=== PATIENT | male | born 1960 | race African-American/Black ===

== ENCOUNTER 2019-02-15 00:05 | Inpatient (IN) | payer MEDICARE, OTHER ==
[~2019-02-15] VITALS: Ht 182.9 cm; Wt 61.7 kg
[~2019-02-15 00:05] MED LIST: ATEN50TA; HYDR25TA
[2019-02-15] MEDS ORDERED: SODIUM CHLORIDE 0.9% 1,000 ML IV ONE (00:19)
[2019-02-15] MEDS ORDERED: ONDANSETRON HCL 4MG/2ML INJ IV STA (00:19)
[2019-02-15 00:44] LABS: BASOPHILS % 0.8 % (0.0-2.0); EOSINOPHILS % 0.7 % (0.0-5.0); HEMATOCRIT. 40.3 % (42.0-52.0); MEAN CORPUSCULAR HEMOGLOBIN 28.5 pg (28.0-32.0); MEAN CORPUSCULAR VOLUME 87.9 fL (80.0-94.0); MEAN PLATELET VOLUME 7.5 fl (7.4-10.4); MONOCYTES % 7.4 % (2.0-8.0); NEUTROPHILS % 39.1 % (40.0-76.0); PLATELET 238 x1000/uL (130-400); RED BLOOD CELL COUNT 4.58 mill/uL (4.7-6.1); RED CELL DISTRIBUTION WIDTH 13.3 % (11.6-14.6)
[2019-02-15 00:48] LABS: CHLORIDE 104 mEq/L (98-107)
[2019-02-15 00:53] LABS: ETHANOL BLOOD 219 mg/dL
[2019-02-15 02:43] LABS: CLARITY URINE CLEAR (CLEAR); COLOR URINE YELLOW (YELLOW); KETONES URINE NEGATIVE (NEGATIVE); LEUKOCYTE ESTERASE URINE NEGATIVE (NEGATIVE); NITRITE URINE NEGATIVE (NEGATIVE); OCCULT BLOOD URINE NEGATIVE (NEGATIVE); PROTEIN URINE NEGATIVE (NEGATIVE); SPECIFIC GRAVITY URINE 1.007 (1.005-1.030); UROBILINOGEN URINE 0.2 E.U./dL (0.2-1.0)
[2019-02-15 02:52] LABS: *AMPHETAMINES SCREEN URINE NEGATIVE (NEGATIVE); *BARBITURATES SCREEN URINE NEGATIVE (NEGATIVE); *BENZODIAZEPINES SCREEN URINE NEGATIVE (NEGATIVE); *COCAINE SCREEN URINE NEGATIVE (NEGATIVE); METHADONE URINE SCREEN NEGATIVE (NEGATIVE); OPIATES URINE SCREEN NEGATIVE (NEGATIVE)
[2019-02-15 02:53] LABS: CANNABINOID URINE SCREEN NEGATIVE (NEGATIVE); PHENCYCLIDINE URINE SCREEN NEGATIVE (NEGATIVE)
[2019-02-15 08:30] VITALS: BP 112/68
[2019-02-15] MEDS ORDERED: METF-414 PO (08:58)
[2019-02-15 09:00] VITALS: BP 112/68
[2019-02-15] MEDS ORDERED: ASPI-1158 PO (10:59)
[2019-02-15] MEDS ORDERED: LISI1TAB9 PO (10:59)
[2019-02-15] MEDS ORDERED: BACL20TA PO (10:59)
[2019-02-15] MEDS ORDERED: CLONIDINE 0.1MG TABLET PO PRN (11:45)
[2019-02-15] MEDS ORDERED: ACETAMINOPHEN 325MG TABLET PO PRN (11:45)
[2019-02-15] MEDS ORDERED: MVI, ADULT NO.1 10 ML, FOLIC ACID 1 MG, THIAMINE HCL 100 MG in SODIUM CHLORIDE 0.9% 1,0... IV SCH ×4 (11:45)
[2019-02-15] MEDS ORDERED: IPRATROPIUM/ALBUTEROL 0.5-3(2.5)MG/3ML NEB INH PRN (11:45)
[2019-02-15] MEDS ORDERED: HYDROCODONE/ACETAMINOPHEN 5/325MG TABLET PO PRN (11:45)
[2019-02-15] MEDS ORDERED: ONDANSETRON HCL 4MG/2ML INJ IV PRN (11:45)
[2019-02-15 12:00] VITALS: BP 131/83
[2019-02-15 16:00] VITALS: BP 147/96
[2019-02-15 20:00] VITALS: BP 128/85
[2019-02-16] VITALS: BP 127/83
[2019-02-16 04:00] VITALS: BP 152/98
[2019-02-16 05:48] LABS: BASOPHILS % 0.3 % (0.0-2.0); EOSINOPHILS % 1.1 % (0.0-5.0); HEMATOCRIT. 36.7 % (42.0-52.0); HEMOGLOBIN. 12.1 g/dL (14.0-18.0); LYMPHOCYTES % 49.6 % (20.0-50.0); MEAN CORPUSCULAR HEMOGLOBIN 28.8 pg (28.0-32.0); MEAN CORPUSCULAR VOLUME 87.6 fL (80.0-94.0); MONOCYTES % 8.4 % (2.0-8.0); NEUTROPHILS % 40.6 % (40.0-76.0); PLATELET 221 x1000/uL (130-400); RED BLOOD CELL COUNT 4.19 mill/uL (4.7-6.1); RED CELL DISTRIBUTION WIDTH 13.3 % (11.6-14.6)
[2019-02-16 06:23] LABS: CHLORIDE 109 mEq/L (98-107)
[2019-02-16 06:32] LABS: LDL CHOLESTEROL 86 mg/dL (5-100)
[2019-02-16 06:34] LABS: HDL CHOLESTEROL 44 mg/dL (40-59); T4 FREE 0.97 ng/dL (0.76-1.46)
[2019-02-16 08:00] VITALS: BP 138/101
[2019-02-16 12:00] VITALS: BP 101/70
[2019-02-16 14:27] VITALS: BP 101/70
== END 2019-02-16 15:07 | disposition home or self-care (01) | DRG 896 ==
LOC: ER 00:05 → 7WST 04:48 → ENRESERV 07:08
PROVIDERS: ADMIT Internal Medicine; ATTEND Internal Medicine
DX: F10.129 Alcohol abuse with intoxication, unspecified (principal); G92 Toxic encephalopathy; I10 Essential (primary) hypertension; E11.9 Type 2 diabetes mellitus without complications; Y90.7 Blood alcohol level of 200-239 mg/100 ml; W18.39XA Other fall on same level, initial encounter; Y92.098 Other place in other non-institutional residence as the place of occurrence of the external cause; Y93.89 Activity, other specified; Y99.8 Other external cause status; Z71.41 Alcohol abuse counseling and surveillance of alcoholic; Z79.82 Long term (current) use of aspirin; Z79.899 Other long term (current) drug therapy; Z79.84 Long term (current) use of oral hypoglycemic drugs
CPT/HCPCS: 36415; 71045; 80061; 80305; 80320; 82962; 83036; 84439; 84443; 84484; 93005; 93306; 93880; 96361; 96374; 97162; 99285; J2405; J3411; J3490; J7030; G0480

== ENCOUNTER 2022-06-02 18:06 | Emergency (ER) | payer OTHER, MEDICAID ==
[~2022-06-02] VITALS: Ht 180.3 cm; Wt 80.0 kg
[~2022-06-02 18:06] MED LIST changes: +ASPI-1406 PO; -ATEN50TA; +BACL20TA PO; -HYDR25TA; +LISI1TAB9 PO; +METF-414 PO
[2022-06-02] MEDS ORDERED: SODIUM CHLORIDE 0.9% 1,000 ML IV ONE (19:00)
[2022-06-02 19:20] LABS: BASOPHILS % 0.5 % (0.0-2.0); EOSINOPHILS % 0.6 % (0.0-5.0); HEMATOCRIT. 38.5 % (42.0-52.0); HEMOGLOBIN. 12.6 g/dL (14.0-18.0); LYMPHOCYTES % 54.2 % (20.0-50.0); MEAN CORPUSCULAR HEMOGLOBIN 28.4 pg (28.0-32.0); MEAN CORPUSCULAR VOLUME 86.9 fL (80.0-94.0); MONOCYTES % 4.9 % (2.0-8.0); NEUTROPHILS % 39.8 % (40.0-76.0); PLATELET 227 x1000/uL (130-400); RED BLOOD CELL COUNT 4.43 mill/uL (4.7-6.1)
[2022-06-02 19:26] LABS: CHLORIDE 108 mEq/L (98-107)
[2022-06-02 19:36] LABS: ETHANOL BLOOD 286 mg/dL
[2022-06-02] MEDS ORDERED: POTASSIUM CHLORIDE 20MEQ TABLET SR PO NR (21:45)
[2022-06-02] MEDS ORDERED: POTA-204 MT (22:59)
[2022-06-02] MEDS ORDERED: FOLIC ACID 1 MG, THIAMINE HCL 100 MG, MVI, ADULT NO.1 10 ML in DEXTROSE 5% WATER 1,000 ML IV ONE ×4 (23:00)
[2022-06-03 04:30] VITALS: BP 159/89
== END 2022-06-03 05:00 | disposition home or self-care (01) ==
LOC: ER 18:06
DX: F10.129 Alcohol abuse with intoxication, unspecified (principal); Y90.9 Presence of alcohol in blood, level not specified; R41.82 Altered mental status, unspecified; E87.2 Acidosis; E87.6 Hypokalemia; D64.9 Anemia, unspecified; D72.819 Decreased white blood cell count, unspecified; E11.9 Type 2 diabetes mellitus without complications; I10 Essential (primary) hypertension; Z79.82 Long term (current) use of aspirin
CPT/HCPCS: 36415; 70450; 71045; 80053; 80307; 80320; 80329; 82140; 83605; 83690; 83880; 84484; 85025; 93005; 96361; 96365; 96366; 99285; J3411; J3490; J7030; J7070; G0480

== ENCOUNTER 2023-07-06 06:51 | Emergency (ER) | payer BC, MEDICAID ==
[~2023-07-06] VITALS: Ht 167.6 cm; Wt 66.4 kg
[~2023-07-06 06:51] MED LIST changes: +POTA-204 MT
[2023-07-06 07:05] VITALS: O2SAT 98
[2023-07-06] MEDS ORDERED: KETOROLAC 60MG/2ML VIAL IM ONE (07:15)
[2023-07-06] MEDS ORDERED: TOPUD PO (08:51)
[2023-07-06] MEDS ORDERED: KETOROLAC 30MG/ML VIAL IM NR (09:15)
[2023-07-06 09:23] VITALS: BP 161/99; PULSE 79; RESP 16; TEMP 97.5
== END 2023-07-06 09:24 | disposition home or self-care (01) ==
LOC: ER 06:51
DX: M25.552 Pain in left hip (principal); M25.551 Pain in right hip; I10 Essential (primary) hypertension; E11.9 Type 2 diabetes mellitus without complications; Z86.73 Personal history of transient ischemic attack (TIA), and cerebral infarction without residual deficits; Z98.890 Other specified postprocedural states
CPT/HCPCS: 99283; 72170; 96372; J1885